=== PATIENT | male | born 1950 | race African-American/Black ===

== ENCOUNTER 2022-06-07 10:04 | Inpatient (IN) ==
[2022-06-07 13:38] LABS: Arterial Base Excess iSTAT 7 MMOL/L (-2.5-2.5); Arterial O2 Saturation iSTAT 92 % (95-100); Arterial PCO2 iSTAT 81 MM HG (35-48); Arterial PO2 iSTAT 75 MM HG (80-95); Arterial Total CO2 iSTAT 41 MMO/L (23-27); Arterial pH iSTAT 7.289 (7.35-7.45)
[2022-06-07 14:25] LABS: Albumin 3.8 G/DL (3.4-5.0); Bilirubin,Total 0.4 MG/DL (0.20-1.00); Calcium 9.1 MG/DL (8.5-10.1); Potassium 4.9 MMOL/L (3.5-5.1); Total Protein 8.6 G/DL (6.4-8.2)
[2022-06-07 14:29] LABS: Basophils % 0.4 % (0.0-0.8); Eosinophils % 0.1 % (0.00-10.9); Hematocrit 57.1 VOL% (42.0-52.0); Hemoglobin 17.4 GM/DL (14.0-18.0); Immature Granulocytes % 1.9 %; Immature Granulocytes Absolute 0.15 #; Lymphocytes # 1.1 10*3/uL (1.4-4.0); Mean Corpuscular HGB Conc 30.5 GM/DL (32-36); Mean Corpuscular Volume 88.4 FL (87-102); Monocytes # 0.1 10*3/uL (0.11-0.8); Monocytes % 0.9 % (1.7-12.7); NRBC # 0.04 10*3/uL; Neutrophils % 82.7 % (38.7-73.9); Platelet Count 315 T/CUMM (130-400); Red Blood Count 6.46 MC/CUMM (3.8-5.5); Red Cell Distribution Width 14.8 % (9.3-17.3); White Blood Count 7.95 T/CUMM (4-12)
[2022-06-07] MEDS ORDERED: FUROSEMIDE 40 MG/4 ML VIAL IV ONE (14:44)
[2022-06-07] MEDS ORDERED: GLUCAGON 1 MG VIAL IM PRN (14:46)
[2022-06-07] MEDS ORDERED: DEXTROSE 10% 250 ML BAG IV PRN (14:46)
[2022-06-07 14:54] LABS: Ferritin 55.3 ng/mL (26-388)
[2022-06-07 15:09] LABS: Lymphocytes 15 % (20-55); Polychromasia Few; Total Cells Counted 100
[2022-06-07 15:10] LABS: Platelet Estimate Normal
[2022-06-07 16:39] LABS: Arterial Base Excess iSTAT 9 MMOL/L (-2.5-2.5); Arterial Bicarbonate iSTAT 41.3 MMOL/L (20-26); Arterial O2 Saturation iSTAT 95 % (95-100); Arterial PCO2 iSTAT 87 MM HG (35-48); Arterial PO2 iSTAT 93 MM HG (80-95); Arterial Total CO2 iSTAT 44 MMO/L (23-27); Arterial pH iSTAT 7.285 (7.35-7.45)
[2022-06-07] MEDS: INSULIN LISPRO 100 UNIT/ML SUBCUT SCH ×2 (16:43→20:40)
[2022-06-07] MEDS: methylPREDNISolone SOD SUC 40 MG/1 ML VIAL IV SCH (17:15)
[2022-06-07] MEDS: ALBUTEROL/IPRATROPIUM 3 ML NEB RESP TX SCH ×2 (19:40→23:43)
[2022-06-07] MEDS: ENOXAPARIN 40 MG/0.4 ML SYRINGE SUBCUT SCH (20:41)
[2022-06-07] MEDS: ATORVASTATIN 20 MG TABLET PO SCH (20:41)
[2022-06-08] MEDS: methylPREDNISolone SOD SUC 40 MG/1 ML VIAL IV SCH ×3 (00:33→18:03)
[2022-06-08 02:43] LABS: ABG Base Excess 11.2 MMOL/L (-2.5-2.5); ABG HCO3 34.7 MMOL/L (20-26); ABG Oxygen Saturation 90.8 % (95-100); ABG PH 7.328 (7.35-7.45); ABG PO2 66.9 MM HG (80-95); ABG TCO2 36.2 MMOL/L (23-27)
[2022-06-08 05:44] LABS: Basophils % 0.1 % (0.0-0.8); Hematocrit 53.2 VOL% (42.0-52.0); Hemoglobin 15.6 GM/DL (14.0-18.0); Immature Granulocytes % 1.1 %; Immature Granulocytes Absolute 0.12 #; Lymphocytes # 1.3 10*3/uL (1.4-4.0); Lymphocytes % 11.7 % (21.2-54.2); Mean Corpuscular HGB Conc 29.3 GM/DL (32-36); Mean Corpuscular Volume 90.6 FL (87-102); Mean Platelet Volume 10.2 FL (9.6-12.0); Monocytes # 0.3 10*3/uL (0.11-0.8); Neutrophils % 84.1 % (38.7-73.9); Platelet Count 313 T/CUMM (130-400); Red Blood Count 5.87 MC/CUMM (3.8-5.5); White Blood Count 11.24 T/CUMM (4-12)
[2022-06-08 06:08] LABS: Calcium 9.4 MG/DL (8.5-10.1); Osmolality,Calculated 272.1 MOS/KG (273-304); Potassium 4.5 MMOL/L (3.5-5.1)
[2022-06-08] MEDS: ALBUTEROL/IPRATROPIUM 3 ML NEB RESP TX SCH ×3 (07:18→19:37)
[2022-06-08] MEDS: INSULIN LISPRO 100 UNIT/ML SUBCUT SCH ×4 (08:02→20:57)
[2022-06-08 08:31] LABS: Arterial Base Excess iSTAT 10 MMOL/L (-2.5-2.5); Arterial Bicarbonate iSTAT 40.4 MMOL/L (20-26); Arterial O2 Saturation iSTAT 98 % (95-100); Arterial PCO2 iSTAT 77 MM HG (35-48); Arterial PO2 iSTAT 115 MM HG (80-95); Arterial Total CO2 iSTAT 43 MMO/L (23-27); Arterial pH iSTAT 7.325 (7.35-7.45)
[2022-06-08] MEDS: LEVOFLOXACIN INJ 750 MG/150 ML PREMIX IV SCH (10:32)
[2022-06-08 15:55] LABS: Barbiturates Screen,Urine Negative (Negative); Benzodiazepines Screen,Urine Negative (Negative); Cannabinoid Screen,Urine Negative (Negative); Opiate Screen,Urine Positive (Negative); Phencyclidine Screen,Urine Negative (Negative)
[2022-06-08] MEDS: ENOXAPARIN 40 MG/0.4 ML SYRINGE SUBCUT SCH (20:20)
[2022-06-08] MEDS: ATORVASTATIN 20 MG TABLET PO SCH (20:20)
[2022-06-09] MEDS: ALBUTEROL/IPRATROPIUM 3 ML NEB RESP TX SCH ×2 (00:44→07:15)
[2022-06-09] MEDS: methylPREDNISolone SOD SUC 40 MG/1 ML VIAL IV SCH ×2 (01:09→09:46)
[2022-06-09 05:51] LABS: Basophils % 0.1 % (0.0-0.8); Hematocrit 51.3 VOL% (42.0-52.0); Hemoglobin 15.8 GM/DL (14.0-18.0); Immature Granulocytes % 0.7 %; Immature Granulocytes Absolute 0.11 #; Lymphocytes % 6.4 % (21.2-54.2); Mean Corpuscular HGB Conc 30.8 GM/DL (32-36); Monocytes # 0.3 10*3/uL (0.11-0.8); Monocytes % 1.7 % (1.7-12.7); NRBC # 0.03 10*3/uL; Neutrophils % 91.1 % (38.7-73.9); Platelet Count 309 T/CUMM (130-400); Red Blood Count 5.83 MC/CUMM (3.8-5.5); Red Cell Distribution Width 14.7 % (9.3-17.3); White Blood Count 16.06 T/CUMM (4-12)
[2022-06-09 06:00] LABS: ABG Base Excess 2.8 MMOL/L (-2.5-2.5); ABG HCO3 26.8 MMOL/L (20-26); ABG Oxygen Saturation 94.5 % (95-100); ABG PCO2 50.6 MM HG (35-48); ABG PH 7.373 (7.35-7.45); ABG PO2 75.2 MM HG (80-95); ABG TCO2 24.7 MMOL/L (23-27)
[2022-06-09 06:50] LABS: Lymphocytes 2 % (20-55); Platelet Estimate Normal; Total Cells Counted 100
[2022-06-09 06:52] LABS: Alanine Aminotransferase 27 U/L (16-61); Albumin 3.2 G/DL (3.4-5.0); Alkaline Phosphatase 92 U/L (45-117); Aspartate Amino Transferase 14 U/L (0-37); Bilirubin,Total < 0.39 MG/DL (0.20-1.00); Blood Urea Nitrogen 23 MG/DL (7-18); Calcium 9.2 MG/DL (8.5-10.1); Carbon Dioxide 27 MMOL/L (21-32); Chloride 100 MMOL/L (98-107); Ferritin 41.6 ng/mL (26-388); Glucose 147 MG/DL (74-106); Sodium 136 MMOL/L (136-145); Total Protein 7.6 G/DL (6.4-8.2)
[2022-06-09] MEDS: INSULIN LISPRO 100 UNIT/ML SUBCUT SCH ×2 (09:46→11:58)
[2022-06-09] MEDS: LEVOFLOXACIN INJ 750 MG/150 ML PREMIX IV SCH (09:46)
[2022-06-09 12:22] VITALS: BP 144/59
== END 2022-06-09 14:00 | disposition home or self-care (01) | DRG 190 ==
LOC: N.2E → SUATTDRO 13:16 → OBSVTOIN 13:16
PROVIDERS: ADMIT Internal Medicine; ATTEND Hospitalist